=== PATIENT | female | born 1960 | race Caucasian/White ===

== ENCOUNTER 2017-10-12 10:57 | Day surgery (SDC) | payer BC ==
[~2017-10-12 10:57] MED LIST: Buffered Lidocaine 0.9% SYRIN* 5 ML/SYR SYRINGE INTRADERM ONE
[2017-10-12] MEDS ORDERED: Bupivacaine 0.25% SDV* 30 ML ONE (11:51)
[2017-10-12] MEDS ORDERED: fentaNYL* 50 MCG/ML 2 ML VIAL (100 MCG VIAL) ONE (12:56)
[2017-10-12] MEDS ORDERED: Midazolam* 1 MG/ML 2 ML VIAL (2 MG) ONE (12:58)
[2017-10-12] MEDS ORDERED: Propofol* 10 MG/ML 20 ML BTL IV PUSH ONE (13:18)
[2017-10-12 13:53] VITALS: BP 102/66
--- NOTE | 2017-10-18 08:47 | OP ---
DATE OF OPERATION: 10/12/17 [facility] DATE OF : 58 SURGEON: Mckay Tristan MD. ROLL OPERATOR: MAULIK Lucia. ANESTHESIOLOGIST: ANESTHESIA: Local MAC. PRE-OP DIAGNOSIS: Right carpal tunnel syndrome. POST-OP DIAGNOSIS: Right carpal tunnel syndrome. OPERATIVE PROCEDURE: Right open carpal tunnel release. INDICATIONS: Merle has bilateral carpal tunnel syndrome, which has been progressive. We talked about the risks and benefits. She wanted to proceed. ESTIMATED BLOOD LOSS: 2 mL. COMPLICATIONS: None. FINDINGS: As expected. DESCRIPTION OF PROCEDURE: Merle was seen in the preoperative holding area. The correct site, side, and procedure were identified. We came back to the operating room. The hand was anesthetized. The arm was prepped and draped and a time-out was performed. I made a 2 to 3 cm incision in the standard location for an open carpal tunnel release. Dissection was carried down through the subcutaneous tissue and fascia. The transverse carpal ligament was released just off the radial aspect of the hook of the hamate. The release was completed distally with tenotomy scissors. Proximally, I released the subcutaneous tissue and fascia, retracted this, and under direct visualization released the remainder of the transverse carpal ligament and distal antebrachial fascia with the tenotomy scissors. Checked the decompression. Once there was absolutely, no compression on the nerve, I irrigated out the wound. Skin was closed with a 3-0 Monocryl suture. The wound was dressed with Xeroform, 4x4s, sterile Webril, and an Randy bandage. She was woken up and taken to recovery room in stable condition. [id number]/[facility] #: [id number] [facility]
== END 2017-10-12 14:09 | disposition home or self-care (01) ==
LOC: OREAST 10:57
PROVIDERS: ATTEND Orthopaedic Surgery Hand Surgery
DX: G56.03 Carpal tunnel syndrome, bilateral upper limbs (principal); F17.210 Nicotine dependence, cigarettes, uncomplicated; K21.9 Gastro-esophageal reflux disease without esophagitis; J44.9 Chronic obstructive pulmonary disease, unspecified; I35.0 Nonrheumatic aortic (valve) stenosis; Z95.1 Presence of aortocoronary bypass graft; Z88.5 Allergy status to narcotic agent; J31.0 Chronic rhinitis; M20.021 Boutonniere deformity of right finger(s)
CPT/HCPCS: J2250; J2704; J3010

== ENCOUNTER 2018-02-15 18:04 | Emergency (ER) | payer BC ==
[2018-02-15 19:14] VITALS: BP 134/77
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
== END 2018-02-15 20:07 | disposition home or self-care (01) ==
LOC: UCCORT 18:04
DX: B07.0 Plantar wart (principal); L03.115 Cellulitis of right lower limb; F17.200 Nicotine dependence, unspecified, uncomplicated; Z88.6 Allergy status to analgesic agent; Z88.5 Allergy status to narcotic agent
CPT/HCPCS: 99212; G0463